=== PATIENT | male | born 1945 | race Caucasian/White ===

== ENCOUNTER → 2020-11-18 08:42 | Outpatient (CLI) | payer MEDICARE, OTHER, SELFPAY ==
[2020-11-19 02:21] LABS: SARS-CoV-2 RNA PCR Negative
== END ==
PROVIDERS: PCP Internal Medicine; Visit Provider Internal Medicine
DX: Z20.822 Contact with and (suspected) exposure to COVID-19 (principal)
CPT/HCPCS: C9803; U0003; U0005

== ENCOUNTER 2021-09-15 01:36 | Day surgery (SDC) | payer MEDICARE, OTHER, SELFPAY ==
[2021-08-28 14:59] VITALS: BMI 28.5
[2021-09-15 09:38] VITALS: BP 166/85; PULSE 64; RESP 18; TEMP 36.4; O2SAT 100
[2021-09-15] MEDS: LACTATED RINGERS 1,000 ML 150 ML IV CONT (09:48)
--- NOTE | 2021-09-15 10:05 | WPDGICN ---
Assessment and Plan Assessment and plan (1) Hx of colonic polyps: Code(s): Z86.010 - Personal history of colonic polyps Status: Acute Assessment and Plan: Patient has a prior history of colon polyps. Most recent colonoscopy 2018. Plan is for surveillance colonoscopy at intervals in the future. High-fiber diet advised. Further recommendations may be given after endoscopy. GI Consult Note Consult date/time: 09/15/21 10:05 Reason for consult: History of colon polyps. HPI: Alberto Harrington is a 75 year old male Presents for neoplasia screening colonoscopy. Patient reports that his current weight appetite and bowel movements are normal. Patient denies abdominal pain. Patient has had no bleeding. He does have a prior history of adenomatous colon polyps removed from the colon 3 years ago. He returns today for surveillance colonoscopy. Patient denies abdominal pain has had no bleeding his family history is noncontributory. Review of Systems Review of Systems: Review of systems noncontributory. [facility] Past Medical History Medical History Benign essential hypertension BMI 29.0-29.9,adult BMI 30.0-30.9,adult Chest wall discomfort Colon cancer screening Dyslipidemia Elevated homocysteine Encounter for Medicare annual wellness exam Encounter for routine adult health examination without abnormal findings Encounter for special screening examination for neoplasm of prostate Erectile dysfunction GERD (gastroesophageal reflux disease) Hx of colonic polyps Hx of colonic polyps IGT (impaired glucose tolerance) Macular degeneration On snf drug therapy Rosacea Testicular hypofunction Family History Family History Mother Family history of lung cancer Father Family history of congestive heart failure Social History Social History Smoking packs per day: 1 Smoking cigarettes per day: 20.0 Years smoked: 20 Smoking pack-years: 20.00 Smoking status: Former smoker Tobacco type: cigarettes Smoking end date: 05/18/91 Alcohol intake: current Alcohol use details: socially Substance use: never Substance use type: does not use Living arrangements: with family Spiritual care concerns: No Meds Home Medications and Allergies Home Medications Medication Instructions Recorded Confirmed Type cyanocobalamin (vitamin B-12) 1,000 mcg PO DAILY #90 tabs 04/13/19 08/30/21 Rx 1,000 mcg tablet (Vitamin B-12) sildenafil 100 mg tablet 100 mg PO DAILY PRN (Drug) 05/07/19 08/30/21 History Ingestion lactobacillus combination no.9 4 4,000 mmu cells PO DAILY 05/27/20 08/30/21 History billion cell capsule (Adult 50 Plus Probiotic) melatonin 5 mg tablet 5 mg PO HS 05/27/20 08/30/21 History psyllium seed (sugar) oral powder 2 tsp PO ONCE 05/27/20 08/30/21 History (Metamucil (sugar) oral powder) vit C 250 mg-vit E 90 mg-zinc 40 1 tablet PO BID 05/27/20 08/30/21 History mg-copper 1 wz-iqaeow-firxhp capsule (PreserVision AREDS-2) carvedilol 6.25 mg tablet 6.25 mg PO Q12H #180 tabs 10/19/20 08/30/21 Rx pantoprazole 40 mg tablet,delayed 40 mg PO QAM #90 tabs 11/28/20 08/30/21 Rx release testosterone 10 mg/0.5 4 pump transdermal QAM #270 grams 12/27/20 08/30/21 Rx gram/actuation transdermal gel pump (Fortesta) amlodipine 10 mg tablet 10 mg PO DAILY #90 tabs 03/27/21 08/30/21 Rx folic acid 1 mg tablet 1 mg PO DAILY #90 tabs 03/27/21 08/30/21 Rx telmisartan 40 1 tablet PO DAILY #90 tabs 04/10/21 08/30/21 Rx mg-hydrochlorothiazide 12.5 mg tablet adapalene 0.1 % topical gel 1 applic topical QHS 04/20/21 08/30/21 History (Differin) doxycycline hyclate 100 mg tablet 20 mg PO BID 04/20/21 08/30/21 History triamcinolone acetonide 0.1 % 1 applic topical BID #30 grams 04/20/21 08/30/21 Rx topical
--- NOTE | 2021-09-15 10:06 | WPDANESEPPF ---
Anes - Initial Pre Proc Eval Procedure: Operation Date: 09/15/21 10:30 Proposed Procedures p Screening Colonoscopy - Fernando Marino MD Date/Time: 09/15/21 10:06 Surgeon: Fernando Marino MD Pre Op Diagnosis: hx of colon polyps Patient Data Age: 75 Gender: M Height: 1.85 m Weight: 100.3 kg Last Vital Signs Temp 97.5 F L 09/15/21 09:38 Pulse 64 09/15/21 09:38 Resp 18 09/15/21 09:38 BP 166/85 H 09/15/21 09:38 Pulse Ox 100 09/15/21 09:38 O2 Del Method Room Air 09/15/21 09:38 Allergies Allergy/AdvReac Type Severity Reaction Status Date / Time No Known Allergies Allergy Verified 09/15/21 09:35 Home Medications Medication Instructions Recorded Confirmed Type cyanocobalamin (vitamin B-12) 1,000 mcg PO DAILY #90 tabs 04/13/19 08/30/21 Rx 1,000 mcg tablet (Vitamin B-12) sildenafil 100 mg tablet 100 mg PO DAILY PRN (Drug) 05/07/19 08/30/21 History Ingestion lactobacillus combination no.9 4 4,000 mmu cells PO DAILY 05/27/20 08/30/21 History billion cell capsule (Adult 50 Plus Probiotic) melatonin 5 mg tablet 5 mg PO HS 05/27/20 08/30/21 History psyllium seed (sugar) oral powder 2 tsp PO ONCE 05/27/20 08/30/21 History (Metamucil (sugar) oral powder) vit C 250 mg-vit E 90 mg-zinc 40 1 tablet PO BID 05/27/20 08/30/21 History mg-copper 1 [id number]-pislxb-witxwu capsule (PreserVision AREDS-2) carvedilol 6.25 mg tablet 6.25 mg PO Q12H #180 tabs 10/19/20 08/30/21 Rx pantoprazole 40 mg tablet,delayed 40 mg PO QAM #90 tabs 11/28/20 08/30/21 Rx release testosterone 10 mg/0.5 4 pump transdermal QAM #270 grams 12/27/20 08/30/21 Rx gram/actuation transdermal gel pump (Fortesta) amlodipine 10 mg tablet 10 mg PO DAILY #90 tabs 03/27/21 08/30/21 Rx folic acid 1 mg tablet 1 mg PO DAILY #90 tabs 03/27/21 08/30/21 Rx telmisartan 40 1 tablet PO DAILY #90 tabs 04/10/21 08/30/21 Rx mg-hydrochlorothiazide 12.5 mg tablet adapalene 0.1 % topical gel 1 applic topical QHS 04/20/21 08/30/21 History (Differin) doxycycline hyclate 100 mg tablet 20 mg PO BID 04/20/21 08/30/21 History triamcinolone acetonide 0.1 % 1 applic topical BID #30 grams 04/20/21 08/30/21 Rx topical cream cyclobenzaprine 10 mg tablet 10 mg PO TID PRN muscle spasm #30 08/24/21 08/30/21 Rx tabs Patient hx anesthesia problems: none Family hx anesthesia problems: none Results Review: All pre-operative results and documents have been reviewed as part of the pre-operative evaluation. [facility] Past Medical History Medical History Benign essential hypertension BMI 29.0-29.9,adult BMI 30.0-30.9,adult Chest wall discomfort Colon cancer screening Dyslipidemia Elevated homocysteine Encounter for Medicare annual wellness exam Encounter for routine adult health examination without abnormal findings Encounter for special screening examination for neoplasm of prostate Erectile dysfunction GERD (gastroesophageal reflux disease) Hx of colonic polyps Hx of colonic polyps IGT (impaired glucose tolerance) Macular degeneration On continuous churn buttermaker drug therapy Rosacea Testicular hypofunction Family History Family History Mother Family history of lung cancer Father Family history of congestive heart failure Social History Social History Smoking packs per day: 1 Smoking cigarettes per day: 20.0 Years smoked: 20 Smoking pack-years: 20.00 Smoking status: Former smoker Tobacco type: cigarettes Smoking end date: 05/18/91 Alcohol intake: current Alcohol use details: socially Substance use: never Substance use type: does not use Living arrangements: with family Spiritual care concerns: No Anes - Eval Final PreProcedure Day of Procedure 09/15/21 10:06 Patient weight: obese Heart: regular rate and rhythm Lungs: c
[2021-09-15 11:04] VITALS: BP 124/62; PULSE 61; RESP 20; O2SAT 100
[2021-09-15 11:11] VITALS: BP 97/79; PULSE 62; RESP 17; O2SAT 100
[2021-09-15 11:21] VITALS: BP 115/57; PULSE 53; RESP 18; O2SAT 100
== END 2021-09-15 11:28 | disposition home or self-care (01) ==
PROVIDERS: PCP Internal Medicine; Visit Provider Internal Medicine Gastroenterology
PROC: 0DJD8ZZ Inspection of Lower Intestinal Tract, Via Natural or Artificial Opening Endoscopic (ICD-10-PCS; CPT 45378; principal; 2021-09-15 10:30)
DX: Z12.11 Encounter for screening for malignant neoplasm of colon (principal); Z86.010 Personal history of colon polyps; K64.8 Other hemorrhoids; K57.30 Diverticulosis of large intestine without perforation or abscess without bleeding; E78.5 Hyperlipidemia, unspecified; K21.9 Gastro-esophageal reflux disease without esophagitis; R73.02 Impaired glucose tolerance (oral); Z87.891 Personal history of nicotine dependence
CPT/HCPCS: G0105; J2704; J7120

== ENCOUNTER 2021-11-21 15:21 | Outpatient (CLI) | payer MEDICARE, OTHER, SELFPAY ==
--- NOTE | ~2021-11-21 | US_ITS ---
EXAMINATION: US thyroid DATE: 11/21/2021 16:05 INDICATION: Abnormal thyroid function tests. TECHNIQUE: Multiple ultrasound images of the thyroid were obtained. COMPARISON: None. FINDINGS: The right thyroid lobe measures 6.6 x 2.0 x 2.2 cm. The left thyroid lobe measures 6.7 x 2.3 x 2.2 c m. In the right thyroid lobe, there is a 9 mm solid, hypoechoic, wider than tall nodule with lobulat ed margin without echogenic foci (TI-RADS TR4). In the left thyroid lobe, there is a 7 mm solid, hypo echoic, wider than tall nodule with peripheral calcifications and smooth margin (TR4). In the left th yroid lobe, there is a 9 mm mixed cystic and solid, hypoechoic, wider than tall nodule with smooth ma rgin without echogenic foci (TR3). IMPRESSION: 1. Small thyroid nodules, likely not clinically significant. No follow-up is needed. Reviewed, dictated and finalized at location A. IMPRESSION: 1. Small thyroid nodules, likely not clinically significant. No follow-up is ne eded.
== END 2021-11-21 15:22 | disposition home or self-care (01) ==
LOC: ANHIMG 15:23
PROVIDERS: PCP Internal Medicine; Visit Provider Internal Medicine
DX: E04.2 Nontoxic multinodular goiter (principal); R94.6 Abnormal results of thyroid function studies
CPT/HCPCS: 76536

== ENCOUNTER 2021-12-25 08:38 | Outpatient (CLI) | payer MEDICARE, OTHER, SELFPAY ==
--- NOTE | ~2021-12-25 | XR_ITS ---
EXAMINATION: XR chest 2V DATE: 12/25/2021 08:53 INDICATION: Cough and congestion. Shortness of breath. TECHNIQUE: Frontal and lateral views of the chest were obtained. COMPARISON: Chest 2 views 05/08/2019 FINDINGS: There is no pneumonia, pleural effusion, or pneumothorax. Staple lines overlie right lung. The heart size is normal. IMPRESSION: 1. No acute cardiopulmonary disease. Reviewed, dictated and finalized at location A.
[2021-12-25 15:53] LABS: Basophils Absolute Auto 0.1 K/mm3 (0.0-0.1); Basophils Percent Auto 0.8 % (0.2-1.2); Eosinophils Absolute Auto 0.2 K/mm3 (0-0.3); Eosinophils Percent Auto 2.1 % (0-4.4); Hematocrit 42.3 % (42.0-52.0); Hemoglobin 14.5 g/dL (14.0-18.0); Immature Granulocyte Absolute 0.02 K/mm3 (0.00-0.031); Immature Granulocyte Percent A 0.3 % (0-0.5); Lymphocytes Absolute Auto 2.45 K/mm3 (0.9-3.2); Lymphocytes Percent Auto 31.9 % (18.3-44.2); Mean Corpuscular HGB Conc 34.3 g/dl (32-36); Mean Corpuscular Hemoglobin 32.8 pg (26-34); Mean Corpuscular Volume 95.7 fl (80-100); Mean Platelet Volume 11.3 fl (7.4-10.4); Monocytes Absolute Auto 0.6 K/mm3 (0.1-0.6); Monocytes Percent Auto 8.3 % (2.6-8.5); Neutrophils Absolute Auto 4.4 K/mm3 (1.3-6.7); Neutrophils Percent Auto 56.6 % (45.5-73.1); Platelet Count Result 165 k/mm3 (150-375); Red Blood Count 4.42 M/mm3 (4.6-6.20); Red Cell Distribution Width 12.6 % (11.5-14.5); White Blood Count 7.7 K/mm3 (4.5-10.0)
[2021-12-25 16:13] LABS: Anion Gap 14 mmol/L (8-16); Blood Urea Nitrogen 17 mg/dL (9-20); Carbon Dioxide 25 mmol/L (22-30); Chloride 101 mmol/L (98-107); Estimated Glomerular Filt Rate > 60; Glucose 101 mg/dL (65-110); Potassium 3.9 mmol/L (3.4-5.0); Sodium 140 mmol/L (137-145)
[2021-12-25 16:15] LABS: D Dimer < 0.27 ug/mL (<0.48)
== END 2021-12-25 08:39 | disposition home or self-care (01) ==
PROVIDERS: PCP Internal Medicine; Visit Provider Internal Medicine
DX: R06.02 Shortness of breath (principal); R07.89 Other chest pain; R06.09 Other forms of dyspnea
CPT/HCPCS: 36415; 71046; 80048; 85025; 85380

== ENCOUNTER 2023-04-29 00:32 | Day surgery (SDC) | payer MEDICARE, OTHER, SELFPAY ==
[2023-04-26 09:13] VITALS: BMI 29.7
--- NOTE | 2023-04-26 09:30 | PC.NURSE ---
Report to the Outpatient Waiting Room, entrance under the green pavilion located off [facility], at time __1015 on date __04/29/23 . Planned Procedure Time: ___1215 . Time changes happen often and if your time is changed the preop area will call you the afternoon before. - You and your visitor will be asked to self-screen and do not enter if you have any COVID symptoms. - A mask is optional within the hospital at this time. Patients may have clear liquids (water, carbonated beverages, clear teas, apple juice) until 3 hours prior to surgery with a maximum of 20 ounces. - No food from midnight until time of surgery - Infants may have breast milk until 4 hours before surgery, infant formula 6 hours prior to surgery. - Children will be allowed to drink immediately following surgery. If applicable, please bring a bottle or sippy cup to assist with drinking. Juice, water, soda, and popsicles are readily available. For infants on formula, please bring formula the day of surgery. Pacifiers are allowed. Take the following medications with a SIP of water the morning of surgery:_AMLODIPINE, CARVEDILOL, DOXYCYCLINE_ DO NOT STOP ANY OF YOUR OTHER PRESCRIPTION MEDICATIONS PRIOR TO SURGERY ?EXCEPT THE FOLLOWING Medications to discontinue per ANESTHESIA - _VITAMINS, PROBIOTIC, PRESERVISION OF TODAY Date to take last dose____04/26/23 Please no make-up, nail sami, hairspray, perfume, deodorant, or body powder the day of surgery. No jewelry (including any body piercings) or valuables the day of surgery, leave them at home. Please take a shower or bath the night before, or the morning of, surgery with an antibacterial soap. Wear comfortable, loose fitting clothing. Children are encouraged to wear pajamas. - Jewelry must be removed prior to entering the operating room. Rings and piercings that are not removed may be cut off. - The hospital will not accept responsibility for valuables. - Please leave all valuables, including medications, at home the day of surgery. If you are going home after surgery, a licensed tilt tray driver must drive you home. - NO public transportation without another adult if you receive anesthesia. - We recommend that an adult stay with you for 24 hours following discharge. - We also recommend that you do not drive, make important decision, drink alcoholic beverages, or take any drugs that were not prescribed by your health care provider for at least 24 hours after your discharge time. For Pediatric surgeries, we recommend two adults accompany the child home. Follow any additional instructions given to you from your surgeon. If you or anyone in your household have experienced Covid symptoms in the past week, please notify your surgeon or the nurse liaison at the phone number below for possible testing. Telephone instructions given to ____PT and asked if any additional questions and then verbalized understanding. Patient advised to call surgeon office or pre surgery nurse liaison [phone] if any additional questions.
[2023-04-29] VITALS (8 sets, daily range): BP systolic 116–158; BP diastolic 59–89; PULSE 44–63; RESP 12–16; TEMP 36.2–37.2; O2SAT 99–100
[2023-04-29] MEDS: ACETAMINOPHEN 500 MG TABLET 1000 MG PO (10:46)
[2023-04-29] MEDS: LACTATED RINGERS 1,000 ML 30 ML IV CONT ×2 (11:00→14:15)
[2023-04-29] MEDS: KETOROLAC 15 MG/ML VIAL (*BKC) IV PUSH (11:09)
[2023-04-29 11:17] LABS: Anion Gap 7 mmol/L (8-16); Blood Urea Nitrogen 18 mg/dL (9-20); Calcium 9.2 mg/dL (8.4-10.2); Carbon Dioxide 28 mmol/L (22-30); Chloride 103 mmol/L (98-107); Estimated CRCL calculation 76 ml/min; Estimated Glomerular Filt Rate > 60; Glucose 93 mg/dL (65-110); Potassium 4.3 mmol/L (3.4-5.0); Sodium 138 mmol/L (137-145)
--- NOTE | 2023-04-29 12:02 | WPDANESEPPF ---
Anes - Initial Pre Proc Eval Procedure: Operation Date: 04/29/23 12:15 Proposed Procedures p Open Umbilical Hernia Repair - Juan Vincent MD Date/Time: 04/29/23 12:02 Surgeon: Juan Vincent MD Pre Op Diagnosis: reducible umbilical hernia Patient Data Age: 77 Gender: M Height: 1.85 m Weight: 102.27 kg Last Vital Signs Temp 98.9 F 04/29/23 11:05 Pulse 63 04/29/23 11:05 Resp 16 04/29/23 11:05 BP 151/77 H 04/29/23 11:05 Pulse Ox 100 04/29/23 11:05 O2 Del Method Room Air 04/29/23 11:05 Allergies Allergy/AdvReac Type Severity Reaction Status Date / Time No Known Allergies Allergy Verified 04/29/23 10:40 Home Medications Medication Instructions Recorded Confirmed Type cyanocobalamin (vitamin B-12) 1,000 mcg PO DAILY #90 tabs 04/13/19 04/26/23 Rx 1,000 mcg tablet (Vitamin B-12) lactobacillus combination no.9 4 4,000 mmu cells PO DAILY 05/27/20 04/26/23 History billion cell capsule (Adult 50 Plus Probiotic) melatonin 5 mg tablet 5 mg PO HS PRN Sleep 05/27/20 04/26/23 History vit C 250 mg-vit E 90 mg-zinc 40 1 tablet PO BID 05/27/20 04/26/23 History mg-copper 1 mj-wyoeza-pritvv capsule (PreserVision AREDS-2) doxycycline hyclate 100 mg tablet 20 mg PO BID 04/20/21 04/26/23 History telmisartan 40 1 tablet PO DAILY #90 tabs 10/10/22 04/26/23 Rx mg-hydrochlorothiazide 12.5 mg tablet pantoprazole 40 mg tablet,delayed 40 mg PO QAM #90 tabs 11/14/22 04/26/23 Rx release cholecalciferol (vitamin D3) 125 125 mcg PO DAILY 12/27/22 04/26/23 History mcg (5,000 unit) capsule amlodipine 10 mg tablet 10 mg PO DAILY #90 tabs 03/11/23 04/26/23 Rx folic acid 1 mg tablet 1 mg PO DAILY #90 tabs 03/11/23 04/26/23 Rx carvedilol 6.25 mg tablet 6.25 mg PO Q12H #180 tabs 04/16/23 04/26/23 Rx fluorouracil 1 % topical cream 1 applic topical BID 04/25/23 04/26/23 History Laboratory Tests 04/29/23 11:02 Sodium 138 mmol/L (137-145) Potassium 4.3 mmol/L (3.4-5.0) Chloride 103 mmol/L (98-107) Carbon Dioxide 28 mmol/L (22-30) Anion Gap 7 L mmol/L (8-16) BUN 18 mg/dL (9-20) Creatinine 0.80 mg/dL (0.7-1.3) Estim Creat Clear Calc 76 ml/min Estimated GFR > 60 (59 - ) Glucose 93 mg/dL (65-110) Calcium 9.2 mg/dL (8.4-10.2) Patient hx anesthesia problems: none Family hx anesthesia problems: none Results Review: All pre-operative results and documents have been reviewed as part of the pre-operative evaluation. [facility] Past Medical History Medical History Benign essential hypertension BMI 28.0-28.9,adult BMI 29.0-29.9,adult BMI 30.0-30.9,adult Borderline abnormal TFTs Chest wall discomfort Colon cancer screening Congestion of left ear Dyslipidemia Elevated glucose Elevated homocysteine Encounter for Medicare annual wellness exam Encounter for routine adult health examination without abnormal findings Encounter for special screening examination for neoplasm of prostate Erectile dysfunction GERD (gastroesophageal reflux disease) Hx of colonic polyps IGT (impaired glucose tolerance) Macular degeneration Nocturia On parts counterman drug therapy Prostate cancer screening Rosacea Strain of lumbar region Testicular hypofunction Tightness in chest Umbilical hernia Vitamin D deficiency Surgical History Surgical History History of appendectomy ~ 1960: open appendectomy S/P excision of lipoma S/P surgical removal of pilonidal cyst Status post lung surgery Family History Family History Mother Family history of lung cancer Father Family history of congestive heart failure Unknown Heart disease Cerebrovascular accident Hypertension Cancer Social History Social History Smoking pack
--- NOTE | 2023-04-29 12:16 | WPDHPUPDATE1 ---
History and Physical Update Update Date/Time: 04/29/23 12:16 History and Physical has been reviewed, including an updated exam of the patient. There are NO changes in the patient's condition. Risks, benefits, and alternatives have been discussed and questions answered. Patient agrees to proceed with procedure.
[2023-04-29] MEDS: ceFAZolin 2 GM/D5W 50 ML 2 GM/50 ML BAG IVPB (12:22)
[2023-04-29] MEDS: LIDO 1%/EPINEPHRINE 1:100,000 50 ML VIAL INFILTRATE (12:50)
--- NOTE | 2023-04-29 13:36 | P.OP_ITS ---
Procedure Note - Detailed Date of Procedure 04/29/23 Pre-op Diagnosis reducible umbilical hernia Post-op Diagnosis Same (Umbilical fascial defect= 2cm.) Procedure Performed Open umbilical hernia repair without mesh. Surgeon Juan Vincent MD Patrol Commander Torie JAMIL, Jean JAMIL Anesthesia General Indications Patient is a 77-year-old gentleman who presented with a slowly enlarging bulge in his umbilicus which was small but a little bit sore. On examination reducible umbilical hernia. Presents now for open repair of umbilical hernia without mesh reinforcement. Findings Umbilical hernia is reducible. Small defect measuring 2cm in diameter. Hernia repaired primarily with multiple interrupted 0 Ethibond sutures. Description of Procedure After informed consent was obtained patient brought to the operating room was placed supine position and general endotracheal anesthesia was administered. The abdomen is then prepped draped usual sterile fashion. A time-out was then performed correctly identifying the patient as well as procedure to be performed verifying he was given perioperative IV antibiotics. Then started by making a small curved incision along the lower portion of the umbilical fold. Dissection carried deeply down through the dermis skin with a scalpel electrocautery was used to dissect down to the small hernia sac. The hernia sac was encircled b luntly with a Lisa clamp and the the dermis of the umbilicus was disconnected from the hernia sac utilized electrocautery. The attenuated edges of the muscle for as well as the hernia sac was then debrided down to the fascial level. This was done utilized electrocautery this tissue was discarded. This left a defect measuring 2cm in diameter. I decided close the defect primarily without the use of any mesh. Multiple 0 Ethibond sutures then placed with 1.5cm bites of good fascia on either side. The defect closed easily without any tension. I irrigated the incision sterile saline solution hemostasis was good. I then injected 1% lidocaine mixed with 0.5% Marcaine with epinephrine around the incision for postoperative pain relief. I then recreated the inverted umbilicus by tacking down the umbilical skin to the deep fascial structures utilizing 3-0 Vicryl suture. Subcutaneous tissues were then closed with interrupted 2-0 Vicryl sutures. A layer of interrupted 3-0 Vicryl deep dermal sutures were then placed and then lastly a running subcuticular 4 Monocryl suture was used to approximate skin edges. The incision was then cleaned and then Dermabond was applied. An abdominal binder was placed as well. The patient tolerated the procedure well no complications. All sponges, needles, and instrument counts were correct at the end procedure. EBL was _5__cc. The patient was awakened and taken to recovery in stable and satisfactory condition. Implants None Estimated Blood Loss 5 Drains No Packing No Pathology None sent Complications No immediate complications Condition Stable Disposition PACU [facility] Billing Surgery - Charge Forward: Surgery Billing
--- NOTE | 2023-04-29 13:52 | SUR.PHASEI ---
1351: Simple mask removed.
[2023-04-29] MEDS: oxyCODONE HCL (*CRX) 5 MG TAB IR PO (14:33)
== END 2023-04-29 15:25 | disposition home or self-care (01) ==
PROVIDERS: Anesthesiology; PCP Internal Medicine; Visit Provider Surgery
PROC: (CPT 49591; principal; 2023-04-29 12:15)
DX: K42.9 Umbilical hernia without obstruction or gangrene (principal); I10 Essential (primary) hypertension; N52.9 Male erectile dysfunction, unspecified; K21.9 Gastro-esophageal reflux disease without esophagitis; H35.30 Unspecified macular degeneration; E29.1 Testicular hypofunction; E66.9 Obesity, unspecified; Z68.29 Body mass index [BMI] 29.0-29.9, adult; Z98.890 Other specified postprocedural states; Z87.891 Personal history of nicotine dependence; Z86.010 Personal history of colon polyps; Z82.49 Family history of ischemic heart disease and other diseases of the circulatory system; Z80.1 Family history of malignant neoplasm of trachea, bronchus and lung
CPT/HCPCS: 49591; 36415; 80048; A9270; J0690; J1100; J1596; J1885; J2405; J2704; J2710; J3010; J7120

== ENCOUNTER 2024-03-18 09:47 | Outpatient (CLI) | payer MEDICARE, OTHER, SELFPAY ==
--- NOTE | ~2024-03-18 | US_ITS ---
EXAMINATION: US retroperitoneal duplex ltd DATE: 03/18/2024 11:10 INDICATION: Essential primary hypertension. TECHNIQUE: Multiple grayscale, color Doppler, and pulsed Doppler images of the kidneys and renal krystal evens were obtained. COMPARISON: None. FINDINGS: The aorta peak systolic velocity is 88 cm/s. The right renal artery peak systolic velocity is 65 cm/s in the proximal segment, 163 cm/s in the mid segment, and 80 cm/s in the distal segment. The left re nal artery peak systolic velocity is 77 cm/s in the proximal segment, 75 cm/s in the mid segment, and 50 cm/s in the distal segment. IMPRESSION: 1. No Doppler evidence of renal artery stenosis. Reviewed, dictated and finalized at location A. OGIC NURSE
--- NOTE | ~2024-03-18 | US_ITS ---
EXAMINATION: US renal BI DATE: 03/18/2024 11:09 INDICATION: Hypertension. TECHNIQUE: Multiple ultrasound grayscale images of the kidneys were obtained. COMPARISON: None. FINDINGS: The right kidney measures 12.4 x 5.9 x 4.5 cm. The left kidney measures 12.9 x 6.2 x 4.3 cm. There is cortical thinning of the kidneys. The kidneys demonstrate normal parenchymal echogenicity. There is a 2.4 cm cyst in right kidney. There is no hydronephrosis. The bladder is normal. IMPRESSION: 1. Cortical thinning of the kidneys. No hydronephrosis. Reviewed, dictated and finalized at location A. COORDINATOR
== END 2024-03-18 09:48 | disposition home or self-care (01) ==
PROVIDERS: PCP Internal Medicine; Visit Provider Internal Medicine
DX: R93.422 Abnormal radiologic findings on diagnostic imaging of left kidney (principal); R93.421 Abnormal radiologic findings on diagnostic imaging of right kidney; I10 Essential (primary) hypertension
CPT/HCPCS: 76775; 93976

== ENCOUNTER 2024-10-02 00:11 | Day surgery (SDC) | payer MEDICARE, OTHER, SELFPAY ==
[2024-09-24 09:46] VITALS: BMI 28.5
--- NOTE | 2024-09-24 09:58 | PC.NURSE ---
Report to the Outpatient Waiting Room, entrance under the green pavilion located off [facility], at time ___0630am____ on date ___10/02/24____. Planned Procedure Time: ____0730am____.? Time changes happen often and if your time is changed the preop area will call you the afternoon before. - You and your visitor will be asked to self-screen and do not enter if you have any COVID symptoms. Please call surgeon if you need to reschedule. - A mask is optional within the hospital at this time. Patients may have Light Breakfast and coffee/drink that am prior to coming in . Take only the following medications with a SIP of water on the morning of surgery: All meds ok to continue as prescribed DO NOT STOP ANY OF YOUR OTHER PRESCRIPTION MEDICATIONS PRIOR TO SURGERY EXCEPT THE FOLLOWING Hold all vitamins and supplements for 3 days per anesthesiologist. Medications to discontinue per physician None Date to take last dose None Please no make-up, nail canadian, hairspray, perfume, deodorant, or body powder the day of surgery.? No jewelry (including any body piercings) or valuables the day of surgery, leave them at home.? Please take a shower or bath the night before, or the morning of, surgery with an antibacterial soap.? Wear comfortable, loose fitting clothing.? - Jewelry must be removed prior to entering the operating room.? Rings and piercings that are not removed may be cut off. - The hospital will not accept responsibility for valuables.? - Please leave all valuables, including medications, at home the day of surgery. If you are going home after surgery, a licensed local intermodal truck driver must drive you home.? - NO public transportation without another adult if you receive anesthesia. - We recommend that an adult stay with you for 24 hours following discharge. -Pt is ok to drive himself home. Follow any additional instructions given to you from your surgeon. Telephone instructions given to ___Patient and asked if any additional questions and then verbalized understanding. Patient advised to call surgeon office or pre surgery nurse liaison [phone] if any additional questions.
[2024-10-02] VITALS (7 sets, daily range): BP systolic 130–167; BP diastolic 62–78; PULSE 52–75; RESP 16–20; TEMP 36.3; O2SAT 97–100
--- OUTSIDE RECORDS SUMMARY | 2024-10-02 00:16 | XMS_ITS | Continuity of Care Document ---
Author Name [facility] Organization [facility] Care Team Providers Care Tailor Fitter Name Role Phone [facility] Unavailable Unavailable Medications Combined list of outpatient medications from Department of Defense and Veterans Affairs facilities.Medications provided include 1) outpatient medications from the last 15 months, and 2) patient-reported medications. Medication Details Route Status Patient Instructions Prescription Expires Prescription Number Last Dispense Date Ordering Provider Order Date Order Qty Source adapalene 0.3% topical gel APPLY A PEA-SIZE D AMOUNT TO FACE AT BEDTIME, # 45 g, 4 total refill(s ), Acute Complet ed 04/18/2023 3 2023 45.0 Ambulat ory Pharmac y albuterol 90 mcg/inh inhalation aerosol INHALE 2 PUFFS BY MOUTH FOUR TIMES A DAY NEEDED FOR SHORTNES S OF BREATH OR WHEEZING , # 8.5 g, 1 total refill(s ), Acute Complet ed 12/24/2022 2 2022 8.5 Ambulat ory Pharmac y amLODIPine (U/D) 10 MG ORAL TAB Be careful if taking OTCs.Vikash e or use exactly as directed . 09/05/2024 [id number] 4 2023 90 [employer] Juan WOLFF ([facility]) amLODIPine 10 mg tablet 10 mg, Oral, Daily, # 90 EA, 1 total refill(s ), Hard Stop Oral (given by mouth) Discont inued 03/06/2024 4 2023 90.0 Ambulat ory Pharmac y amLODIPine 10 mg tablet 10 mg, Oral, Daily, # 90 EA, 1 total refill(s ), Hard Stop Oral (given by mouth) Discont inued 09/10/2023 3 2023 90.0 Ambulat ory Pharmac y amLODIPine 10 mg tablet = 1 tab(s), Oral, Daily, # 90 EA, 1 total refill(s ), Hard Stop Oral (given by mouth) Discont inued 09/01/2024 5 2024 90.0 Ambulat ory Pharmac y amLODIPine 10 mg tablet = 1 tab(s), Oral, Daily, # 90 EA, 1 total refill(s ), Soft Stop Oral (given by mouth) Ordered 5 2024 90.0 Ambulat ory Pharmac y carvedilol 12.5 mg tablet See Instruct ions, Oral, # 180 EA, 1 total refill(s ), Hard Stop Oral (given by mouth) Discont inued 01/28/2024 2023 180.0 Ambulat ory Pharmac y carvedilol 25 mg tablet See Instruct ions, Oral, # 180 EA, 0 total refill(s ), Soft Stop Oral (given by mouth) Discont inued 09/21/2024 5 2024 180.0 Ambulat ory Pharmac y carvedilol 25 mg tablet See Instruct ions, Oral, # 180 EA, 1 total refill(s ), Soft Stop Oral (given by mouth) Ordered 5 2024 180.0 Ambulat ory Pharmac y carvedilol 25 mg tablet See Instruct ions, Oral, # 180 EA, 0 total refill(s ), Hard Stop Oral (given by mouth) Complet ed 04/27/2024 4 2024 180.0 Ambulat ory Pharmac y carvedilol 6.25 mg tablet See Instruct ions, Oral, # 180 EA, 1 total refill(s ), Hard Stop Oral (given by mouth) Discont inued 10/21/2023 4 2023 180.0 Ambulat ory Pharmac y carvedilol 6.25 mg tablet See Instruct ions, Oral, # 180 EA, 1 total refill(s ), Hard Stop Oral (given by mouth) Discont inued 06/17/2024 4 2024 180.0 Ambulat ory Pharmac y carvedilol 6.25 mg tablet See Instruct ions, # 180 EA, 1 total refill(s ), Hard Stop Complet ed 10/17/2023 3 2023 180.0 Ambulat ory Pharmac y clobetasol 0.05% topical solution APPLY 2 TO 3 DROPS TWICE DAILY TO RASH AREAS ON SCALP FOR 28 DAYS (DO NOT APPLY TO FACE) (MUST TAKE 2 WEEK BREAK BEFORE RESTARTI NG), # 50 mL, 1 total refill(s ), Acute Complet ed 10/11/2022 2 2022 50.0 Ambulat ory Pharmac y doxycycline 20 mg tablet See Instruct ions, # 180 EA, 3 total refill(s ), Hard Stop Complet ed 04/16/2024 4 2024 180.0 Ambulat ory Pharmac y doxycycline 20 mg tablet = 2 tab(s), Oral, Daily, # 180 EA, 3 total refill(s ), Hard Stop Oral (given by mouth) Ordered 04/16/2025 5 2024 180.0 Ambulat ory Pharmac y doxycycline 20 mg tablet See Instruct ions, # 180 EA, 2 total refill(s ), Acute Complet ed 04/25/2023 3 2023 180.0 Ambulat ory Pharmac y fluorouraci l 5% cream [40g] See Instruct ions, # 40 g, 2 total refill(s ), Hard Stop Complet ed 03/27/2024 3 2023 40.0 Ambulat ory Pharmac y FOLIC ACID (U/D) 1 MG ORAL TAB 09/05/2024 [id number] 4 2023 90 [employer] Juan WOLFF ([facility]) folic acid 1 mg tablet = 1 tab(s), Oral, Daily, # 90 EA, 1 total refill(s ), Hard Stop Oral (given by mouth) Discont inued 09/01/2024 5 2024 90.0 Ambulat ory Pharmac y folic acid 1 mg tablet 1 mg, See Instruct ions, Oral, Daily, # 90 EA, 1 total refill(s ), Hard Stop Oral (given by mouth) Discont inued 09/10/2023 3 2023 90.0 Ambulat ory Pharmac y folic acid 1 mg tablet 1 mg, Oral, Daily, # 90 EA, 1 total refill(s ), Hard Stop Oral (given by mouth) Discont inued 03/02/2024 4 2023 90.0 Ambulat ory Pharmac y folic acid 1 mg tablet = 1 tab(s), Oral, Daily, # 90 EA, 1 total refill(s ), Soft Stop Oral (given by mouth) Ordered 5 2024 90.0 Ambulat ory Pharmac y folic acid 1 mg tablet 1 mg, Oral, Daily, # 90 EA, 1 total refill(s ), Hard Stop Oral (given by mouth) Discont inued 09/10/2023 4 2023 90.0 Ambulat ory Pharmac y hydrALAZINE 25 mg tablet = 1 tab(s), Oral, TID, # 270 EA, 0 total refill(s ), Soft Stop Oral (given by mouth) Ordered 5 2024 270.0 Ambulat ory Pharmac y hydrALAZINE 50 mg tablet = 1 tab(s), Oral, TID, # 270 EA, 0 total refill(s ), Soft Stop Oral (given by mouth) Ordered 5 2024 270.0 Ambulat ory Pharmac y hydrALAZINE 50 mg tablet = 1 tab(s), Oral, TID, # 270 EA, 1 total refill(s ), Hard Stop Oral (given by mouth) Ordered 03/02/2025 5 2024 270.0 Ambulat ory Pharmac y hydroCHLORO thiazide 12.5 mg tablet = 1 tab(s), Oral, Daily, # 90 EA, 1 total refill(s ), Soft Stop Oral (given by mouth) Discont inued 09/21/2024 5 2024 90.0 Ambulat ory Pharmac y hydroCHLORO thiazide-te lmisartan 12.5 mg-40 mg tab = 1 tab(s), Oral, Daily, # 90 EA, 1 total refill(s ), Soft Stop Oral (given by mouth) Discont inued 09/21/2024 5 2024 90.0 Ambulat ory Pharmac y hydrochloro thiazide-te lmisartan 25 mg-80 mg tablet = 1 tab(s), Oral, Daily, # 90 EA, 1 total refill(s ), Soft Stop Oral (given by mouth) Ordered 5 2024 90.0 Ambulat ory Pharmac y imiquimod 5% cream [24EA] See dose instruct ions in comments , # 24 EA, 1 total refill(s ), Acute Complet ed 04/18/2023 3 2023 24.0 Ambulat ory Pharmac y LORazepam 0.5 mg tablet = 1 tab(s), Oral, TID, # 30 EA, 0 total refill(s ), Hard Stop Oral (given by mouth) Complet ed 01/27/2024 4 2023 30.0 Ambulat ory Pharmac y Micardis HCT 40 mg- 12.5 mg tablet = 1 tab(s), Oral, Daily, # 90 EA, 1 total refill(s ), Hard Stop Oral (given by mouth) Discont inued 04/30/2023 3 2023 90.0 Ambulat ory Pharmac y Micardis HCT 40 mg- 12.5 mg tablet = 1 tab(s), Oral, Daily, # 90 EA, 1 total refill(s ), Hard Stop Oral (given by mouth) Discont inued 01/31/2024 4 2023 90.0 Ambulat ory Pharmac y Micardis HCT 40 mg- 12.5 mg tablet = 1 tab(s), Oral, Daily, # 90 EA, 1 total refill(s ), Hard Stop Oral (given by mouth) Discont inued 09/21/2024 5 2024 90.0 Ambulat ory Pharmac y Micardis HCT 40 mg- 12.5 mg tablet = 1 tab(s), Oral, Daily, # 90 EA, 0 total refill(s ), Hard Stop Oral (given by mouth) Discont inued 07/26/2023 4 2023 90.0 Ambulat ory Pharmac y pantoprazol e EC 40 mg tablet See Instruct ions, # 90 EA, 1 total refill(s ), Hard Stop Discont inued 05/13/2024 4 2024 90.0 Ambulat ory Pharmac y pantoprazol e EC 40 mg tablet = 1 tab(s), Oral, every morning, # 90 EA, 1 total refill(s ), Hard Stop Oral (given by mouth) Ordered 05/13/2025 5 2024 90.0 Ambulat ory Pharmac y pantoprazol e EC 40 mg tablet 40 mg, Oral, every morning, # 90 EA, 1 total refill(s ), Hard Stop Oral (given by mouth) Complet ed 11/14/2023 3 2023 90.0 Ambulat ory Pharmac y pantoprazol e EC 40 mg tablet 40 mg, Oral, every morning, # 90 EA, 1 total refill(s ), Hard Stop Oral (given by mouth) Complet ed 05/12/2024 4 2024 90.0 Ambulat ory Pharmac y pimecrolimu s 1% topical cream APPLY TO RASH AREAS ON TRUNK TWICE A DAY FOR FLARES, THEN USE TWICE A WEEK FOR MAINTENA NCE, # 60 g, 2 total refill(s ), Acute Complet ed 10/11/2022 2 2022 60.0 Ambulat ory Pharmac y telmisartan /HCTZ (UD) 40-12.5MG ORAL TAB Be careful if taking OTCs.Vikash e with food/mil k.Avoid exposure to sun.Take or use exactly as directed .Do not take if . 07/25/2024 [id number] 4 2023 90 [employer] [facility]OL[facility] ([facility]) traZODone 100 mg tablet See Instruct ions, Oral, # 90 EA, 3 total refill(s ), Hard Stop Oral (given by mouth) Discont inued 01/28/2024 4 2023 90.0 Ambulat ory Pharmac y traZODone 150 mg tablet = 1 tab(s), Oral, Daily, # 90 EA, 1 total refill(s ), Hard Stop Oral (given by mouth) Ordered 01/26/2025 5 2024 90.0 Ambulat ory Pharmac y traZODone 50 mg tablet See Instruct ions, # 60 EA, 5 total refill(s ), Hard Stop Discont inued 08/08/2023 4 2023 60.0 Ambulat ory Pharmac y Trazodone Hcl, 100mg, Tablet, Oral Take with food/mil k.Take or use exactly as directed .Obtain advice for OTCs.May cause drowsine ss/dizzi ness. 07/28/2024 [id number] 4 [address] [place] [address] ([facility]) Trazodone Hydrochlori de (Desyrel Eq.) Tablet 50 mg Oral Take with food/mil k.Take or use exactly as directed .Obtain advice for OTCs.May cause drowsine ss/dizzi ness. 07/07/2024 [id number] 4 [address] [place] [address]) Allergies, Adverse Reactions, Alerts Combined list of allergies from Department of Defense and Veterans Affairs facilities. It does not include entries that were removed or entered in error. Substance Category Reaction Severity Reaction type Status Date Reported Comments Source No Known Allergies Drug allergy (disorder) active 02/08/[address] [place] [address] ([facility]) Immunizations Combined list of available immunizations from the Department of Defense and Veterans Affairs facilities. Immunization Series Date Given Administered By Site Reaction Lot Number CVX Code Drug Habilitative Interventionist Status Comments Source COVID-19, mRNA, LNP-S, PF, 100 mcg or 50 mcg dose 2021 REES, Moderna [employer] (MOD) Not Given COVID-19, mRNA, LNP-S, PF, 100 mcg or 50 mcg dose DoD COVID Vaccine Moderna 2020 207 complet ed COVID Vaccine Moderna 02/09/21 Given Ambulat ory Pharmac y COVID-19, mRNA, LNP-S, PF, 100 mcg or 50 mcg dose 2020 [facility], () Not Given COVID-19, mRNA, LNP-S, PF, 100 mcg or 50 mcg dose DoD influenza, high-dose seasonal, quad, pf 2020 197 sanofi pasteur complet ed influenza , high-dose seasonal, quad, pf 01/24/21 Given Ambulat ory Pharmac y influenza, high-dose, quadrivalent 2020 [facility], () Not Given influenza , high-dose , quadrival ent DoD pneumococcal polysaccharid e, 23 valent 2018 33 Merck & Company Inc complet ed pneumococ quintin polysacch aride, 23 valent 02/11/19 Given Ambulat ory Pharmac y pneumococcal polysaccharid e PPV23 2018 [facility], () Not Given pneumococ quintin polysacch aride PPV23 DoD zoster vaccine, inactivated 2018 187 GlaxoSmithKli ne complet ed zoster vaccine, inactivat ed 11/17/18 Given Ambulat ory Pharmac y zoster vaccine, inactivated 2018 187 GlaxoSmithKli ne complet ed zoster vaccine, inactivat ed 08/01/18 Given Ambulat ory Pharmac y influenza, seasonal,high dose-pf 2017 135 sanofi pasteur complet ed influenza , seasonal, high dose-pf 02/07/18 Given Ambulat ory Pharmac y Influenza, high dose seasonal 2016 [facility], () Not Given Influenza , high dose seasonal DoD influenza, seasonal, injectable-pf 2013 140 CSL Behring complet ed influenza , seasonal, injectabl e-pf 02/02/14 Given Ambulat ory Pharmac y Influenza, seasonal, injectable, preservative free 2013 AL[facility], RUSHDI DO () Not Given Influenza , seasonal, injectabl e, preservat kimberly free DoD zoster vaccine live 2011 zzLef t Arm [id number] 121 Merck & Company Inc complet ed zoster vaccine live 07/31/11 Given Ambulat ory Pharmac y zoster vaccine live 2011 [id number] 121 Merck & Company Inc complet ed zoster vaccine live 07/31/11 Given Ambulat ory Pharmac y zoster vaccine, live 1 2011 Unknown, Provider [id number] 121 Merck (MSD) complet ed zoster vaccine, live DoD influenza virus vaccine, live 2010 [id number] 111 Medimmune Inc comple t ed influenza virus vaccine, live 01/04/11 Given Ambulat ory Pharmac y influenza virus vaccine, live 2010 [id number] 111 Medimmune Inc comple t ed influenza virus vaccine, live 01/04/11 Given Ambulat ory Pharmac y influenza virus vaccine, live, attenuated, for intranasal use 1 2010 Unknown, Provider [id number] 111 [employer], [employer]. (MED) complet ed influenza virus vaccine, live, attenuate d, for intranasa l use DoD influenza virus vaccine,split [facility] [id number] 15 sanofi pasteur complet ed influenza virus vaccine,s plit 03/23/08 Given Ambulat ory Pharmac y influenza virus vaccine,split 2007 [id number] 15 sanofi pasteur complet ed influenza virus vaccine,s plit 03/23/08 Given Ambulat ory Pharmac y influenza virus vaccine, split virus (incl. purified surface antigen)-reti red CODE 1 2007 Unknown, Provider [id number] 15 Sanofi Pasteur (PMC) complet ed influenza virus vaccine, split virus (incl. purified surface antigen)- retired CODE DoD influenza virus vaccine,split [facility] [id number] 15 GlaxoSmithKli ne complet ed influenza virus vaccine,s plit 03/05/07 Given Ambulat ory Pharmac y influenza virus vaccine,split 2006 [id number] 15 GlaxoSmithKli ne complet ed influenza virus vaccine,s plit 03/05/07 Given Ambulat ory Pharmac y influenza virus vaccine, split virus (incl. purified surface antigen)-reti red CODE 1 2006 Unknown, Provider [id number] 15 Smithine (SKB) complet ed influenza virus vaccine, split virus (incl. purified surface antigen)- retired CODE DoD influenza virus vaccine,split 2004 zzL t Arm 15 sanofi pasteur complet ed influenza virus vaccine,s plit 02/28/05 Given Ambulat ory Pharmac y influenza virus vaccine, split virus (incl. purified surface antigen)-reti red CODE 1 2004 Unknown, Provider 15 Sanofi Pasteur (PMC) complet ed influenza virus vaccine, split virus (incl. purified surface antigen)- retired CODE DoD Procedures Combined list of: 1) Procedures from Department of Veterans Affairs facilities going back up to thelast 18 months, not all [place] non-surgical procedures are included; 2) All procedures from the Department of Defense facilities. Procedure Procedure Type Code Date Perfomer Comments Sourc e No data available for this section Ambulatory P harmacy Social History Combined list of available smoking, tobacco, and other social history from Department of Defense and Veterans Affairs facilities. Social History Type Response Date Comment Sourc e This section is an empty social history section. [facility] Assessment and Plan Combined list of future care activities from Department of Defense and Veterans Affairs facilities (e.g., assessment and plan notes, appointments, orders, and referrals). Additional future care activities may be listed in the Plan of Care section. Result Assessment and Plan Date Source Assessment and Plan No data available for this section 10/02/2024 Ambulatory Pharmacy Functional Status Combined list of recent functional and cognitive assessments recorded at Department of Defense and Veterans Affairs ([place]).[facility] Functional [place] Measurement (FIM) Scale: 1 = Total Assistance (Subject = 0% +), 2 = Maximal Assistance (Subject = 25% +), 3 = Moderate Assistance (Subject = 50% +), 4 = Minimal Assistance (Subject = 75% +), 5 = Supervision, 6 = Modified [place] (Device), 7 = Complete [place] (Timely, Safely). Assessment Date/Time Source Assessment Type Assessment Skill Assessment Score Assessment Details No data available for this section
--- OUTSIDE RECORDS SUMMARY | 2024-10-02 00:16 | XMS_ITS | Clinical Summary ---
Author Organization [facility] Address [address], [address] [address] Phone Care Team Providers Care Corn Grower Name Role Phone Dave Gresham MD Primary Care Provider [phone] Social History Tobacco Use Types Packs/Day Years Used Date Smoking Tobacco: Never Assessed Sex and Gender Information Value Date Recorded Sex Assigned at Not on file Legal Sex Male 8:56 PM CDT Gender Identity Not on file Sexual Orientation Not on file Plan of Treatment Health Maintenance Due Date Last Done Comments Hepatitis C Virus (HCV) Screening 1945 TdaP Immunization 1945 Pneumococcal Immunization (5 0+ years) (1 of 1 - PCV) 09/27/1995 Zoster Immunization (1 of 2) 09/27/1995 Respiratory Syncytial Virus (RSV) Immunization (Adult) (1 - 1-dose 75+ series) 2020 Influenza Immunization (#1) 2023 SARS-COV-2 Immunization ( season) 2023 Colonoscopy Discontinued 10/09/2018 Colorectal Cancer Screening Discontinued Retired - Colonoscopy High Risk Discontinued 9 Cologuard Discontinued Hepatitis B Immunization Aged Out No longer eligible based on patient's age to complete this topic Immunochemical Fecal Occult Blood Discontinued Meningococcal Immunization (ACWY) Aged Out No longer eligible based on patient's age to complete this topic Rotavirus Immunization Aged Out No lo nger eligible based on patient's age to complete this topic Procedures Procedure Name Priority Date/Time Associated Diagnosis Comments COLONOSCOPY Routine 10/09/2018 from Last 3 Months or Most Recently Relevant to Health Maintenance Results * HM COLONOSCOPY (10/09/2018) us Fernando T Michaela DO PROCEDURE/MINOR SURGICAL ORDERA BLES Final Result from Last 3 Months or Most Recently Relevant to Health Maintenance Insurance MEDICARE [facility] Care Teams Corn Grower Relationship Specialty Start Date End Date Dave Gresham MD PCP - General Internal Medicine 08/21/18
[2024-10-02] MEDS: BUPivacaine HCL 0.5% PF 30 ML VIAL INFILTRATE ×2 (07:11→07:41)
--- NOTE | 2024-10-02 07:18 | WPDHPUPDATE1 ---
History and Physical Update Update Date/Time: 10/02/24 07:18 History and Physical has been reviewed, including an updated exam of the patient. There are NO changes in the patient's condition. Risks, benefits, and alternatives have been discussed and questions answered. Patient agrees to proceed with procedure.
--- NOTE | 2024-10-02 07:59 | S_PTH ---
PATIENT: Alberto Harrington LOC: [facility] U#:[id number] AGE/SX: 79/M ROOM: RE10/02/[address]: Juan Vincent MD : 1945 BED: DIS: 10/02/2024 SPEC #: [id number] RECD: 10/02/24 09:51 STATUS: JAREN REQ #: [id number] NELL: 10/02/24 07:[address]: Juan Vincent DEPT: [facility] Surgical RECD BY: Yelitza Patel ENTERED: 10/02/24 09:51 SP TYPE: Surgical OTHR DR: Dave Gresham MD Tissues: A - Cyst Procedures: Hematoxylin and Eosin Stain Gross and Microscopic Level 4
--- NOTE | 2024-10-02 08:12 | SUR.OPER ---
specimen 2 x .8 x 1, 3 cm closure
--- NOTE | 2024-10-02 08:25 | P.OP_ITS ---
Procedure Note - Detailed Date of Procedure 10/02/24 Pre-op Diagnosis Left perineal inclusion cyst Post-op Diagnosis Same Procedure Performed Excision left perineal inclusion cyst with 3cm intermediate layered wound closure. Surgeon Juan Vincent MD Anesthesia Local Indications Patient is a 79-year-old male who has been having intermittent infections and spontaneous drainage of a left perineal inclusion cyst. It is currently not infected and he would like to have it excised due to recurrent infections. Findings The ellipse of tissue encompassing the cyst was 2x0.8x1cm. It required a 3cm intermediate layered wound closure. Description of Procedure After informed consent was obtained patient brought to the operating room was placed supine on the operating table. He was then placed and hike Yellofin stir rups to expose the left perineal area. The scrotum was retracted upwards and then the left perineal area was and shaved and prepped and draped usual sterile fashion. Time-out was then performed correctly identifying the patient as well as procedure to be performed. Site marking was identified. No IV antibiotics was given as he did not have an IV started. 1% lidocaine mixed with 0.5% Marcaine with some epinephrine was then injected around the cyst for local anesthetic effect. Once this was achieved I then made a elliptical incision around the cyst wall and carried deeply down the dermis of the skin with a scalpel. I then completely excised off the ellipse of tissue containing the cyst wall utilized electrocautery. The ellipse of tissue removed measured 2x0.8x1cm. It was sent to pathology for examination. I achieved hemostasis in the incision utilized electrocautery. It was then closed utilizing interrupted 3-0 Vicryl sutures in the subcutaneous tissues. This was followed by another layer of interrupted 3-0 Vicryl sutures in the deep dermal layer. The skin edges were then approximated utilizing a running subcuticular 4 Monocryl suture. The incision was then cleaned and then skin glue was applied. The length of the intermediate layered wound closure was 3cm. The patient tolerated the procedure well no complications. All sponges, needles, and instrument counts were correct at the end procedure. EBL was _2__cc. The patient was awakened and taken to recovery in stable and satisfactory condition. Implants None Estimated Blood Loss 2 Drains No Packing No Pathology Yes (Left perineal inclusion cyst sent to pathology) Complications No immediate complications Condition Stable Disposition Same day [facility] Billing Surgery - Charge Forward: Surgery Billing
== END 2024-10-02 08:30 | disposition home or self-care (01) ==
PROVIDERS: PCP Internal Medicine; Visit Provider Surgery
PROC: (CPT 11422; principal; 2024-10-02 07:30)
DX: L72.0 Epidermal cyst (principal); E55.9 Vitamin D deficiency, unspecified; K21.9 Gastro-esophageal reflux disease without esophagitis; I10 Essential (primary) hypertension; F41.9 Anxiety disorder, unspecified; G47.00 Insomnia, unspecified; H35.30 Unspecified macular degeneration; E29.1 Testicular hypofunction; N52.9 Male erectile dysfunction, unspecified; R73.09 Other abnormal glucose; Z79.899 Other long term (current) drug therapy; Z98.890 Other specified postprocedural states; Z86.0100 Personal history of colon polyps, unspecified; Z87.891 Personal history of nicotine dependence; Z87.19 Personal history of other diseases of the digestive system; Z80.1 Family history of malignant neoplasm of trachea, bronchus and lung; Z82.49 Family history of ischemic heart disease and other diseases of the circulatory system
CPT/HCPCS: 11422; 12042; 88305; A9270; J2004

== ENCOUNTER 2024-12-11 01:19 | Day surgery (SDC) | payer MEDICARE, OTHER, SELFPAY ==
[2024-11-26 09:04] VITALS: BMI 28.0
[2024-12-11 08:21] VITALS: BP 117/54; PULSE 61; RESP 16; TEMP 36.1; O2SAT 100; BMI 28.5
[2024-12-11] MEDS: LACTATED RINGERS 1,000 ML 150 ML IV CONT (08:30)
--- NOTE | 2024-12-11 08:47 | WPDANESEPPF ---
Anes - Initial Pre Proc Eval Procedure: Operation Date: 12/11/24 09:30 Proposed Procedures p Screening Colonoscopy - Jaime Funes MD s [facility] Hemorrhoid Treatment - Jaime Funes MD Date/Time: 12/11/24 08:47 Surgeon: Jaime Funes MD Pre Op Diagnosis: Personal history of colon polyps, unspecified Patient Data Age: 79 Gender: M Height: 1.85 m Weight: 98.3 kg Last Vital Signs Temp 36.1 C L 12/11/24 08:21 Pulse 61 12/11/24 08:21 Resp 16 12/11/24 08:21 BP 117/54 L 12/11/24 08:21 Pulse Ox 100 12/11/24 08:21 O2 Del Method Room Air 12/11/24 08:21 Allergies Allergy/AdvReac Type Severity Reaction Status Date / Time No Known Allergies Allergy Verified 12/11/24 08:20 Home Medications ?Medication ?Instructions ?Recorded ?Confirmed ?Type cyanocobalamin (vitamin B-12) 1,000 mcg PO DAILY #90 tabs 04/13/19 11/26/24 Rx 1,000 mcg tablet (Vitamin B-12) lactobacillus combination no.9 4 4,000 mmu cells PO DAILY 05/27/20 12/11/24 History billion cell capsule (Adult 50 Plus Probiotic) vit C 250 mg-vit E 90 mg-zinc 40 1 tablet PO BID 05/27/20 12/11/24 History mg-copper 1 [id number]-arxfro capsule (PreserVision AREDS-2) cholecalciferol (vitamin D3) 125 125 mcg PO DAILY 12/27/22 11/26/24 History mcg (5,000 unit) capsule Held on 11/26/24. Instructions: dose change folic acid 1 mg tablet 1 mg PO DAILY #90 tabs 09/01/24 12/11/24 Rx doxycycline hyclate 20 mg tablet 20 mg PO Q12H 09/08/24 12/11/24 History telmisartan 80 1 tablet PO DAILY #90 tabs 09/08/24 12/11/24 Rx mg-hydrochlorothiazide 25 mg tablet carvedilol 25 mg tablet 25 mg PO Q12H #180 tabs 09/09/24 12/11/24 Rx trazodone 150 mg tablet 150 mg PO QHS #90 tabs 10/08/24 12/11/24 Rx hydralazine 25 mg tablet 25 mg PO TID #270 tabs 11/04/24 12/11/24 Rx hydralazine 50 mg tablet See Rx Instructions PO TID #270 11/04/24 12/11/24 Rx tabs pantoprazole 40 mg tablet,delayed 40 mg PO QAM #90 tabs 11/04/24 12/11/24 Rx release amlodipine 10 mg tablet 5 mg PO BIDAC 11/26/24 12/11/24 History cholecalciferol (vitamin D3) 25 25 mcg PO DAILY 11/26/24 12/11/24 History mcg (1,000 unit) capsule (Vitamin D3) melatonin 10 mg capsule 10 mg PO HS PRN sleep 11/26/24 11/26/24 History psyllium 2 tsp PO DAILY 11/26/24 12/11/24 History super beet chews 1 gummy PO BID 11/26/24 11/26/24 History vitamin B complex (B-Complex 1 tablet PO DAILY 11/26/24 12/11/24 History tablet) Patient hx anesthesia problems: none Family hx anesthesia problems: none Results Review: All pre-operative results and documents have been reviewed as part of the pre-operative evaluation. [facility] Past Medical History Medical History (Updated 12/11/24 @ 07:17 by Giorgio Weathers, ) Hypertension Follow up Anxiety Insomnia Nocturia Umbilical hernia Vitamin D deficiency Tightness in chest Strain of lumbar region Elevated glucose Congestion of left ear BMI 28.0-28.9,adult Borderline abnormal TFTs Prostate cancer screening Colon cancer screening Dyslipidemia Rosacea BMI 30.0-30.9,adult Encounter for routine adult health examination without abnormal findings Macular degeneration Testicular hypofunction Encounter for special screening examination for neoplasm of prostate Chest wall discomfort Erectile dysfunction Hx of colonic polyps IGT (impaired glucose tolerance) Elevated homocysteine Encounter for Medicare annual wellness exam On epic willow specialist drug therapy GERD (gastroesophageal reflux disease) Benign essential hypertension BMI 29.0-29.9,adult Surgical History Surgical History (Updated 10/14/24 @ 13:49 by Chrissy Bauer, RUPERTO) H/O removal of cyst 10/02/24 excisional biopsy right posterior shoulder subcutaneous mass measuring 10.[address] Vincent S/P surgical removal of pilonidal cyst S/P excision of lipoma Status post lung surgery History of appendectomy ~ 1960: open appendectomy Family History Family History Mother Family history of lung cancer Father Family history of congestive heart failure Unknown Heart disease Cerebrovascular accident Hypertension Cancer Social History Social History Smoking packs per day: 1 Smoking cigarettes per day: 20.0 Years smoked: 20 Smoking pack-years: 20.00 Smoking status: Former smoker Tobacco type: cigarettes Second hand tobacco smoke exposure: No Smoking end date: 05/18/91 Alcohol intake: current Drinks per week: 5 Alcohol use details: BEER Substance use: never Substance use type: does not use Lack of Transportation: No Lack of Food: Never True Current Housing: I Have Housing Concerned About Future Housing: No Difficulty Paying Gas/Electric Bills: No Difficulty Paying for Meds: No Currently Unemployed: No Education: Master's Degree or Higher Difficulty w/ Childcare or Family Care: No Living arrangements: with family Additional living arrangements comments: Occupation/Education: retired Gender identity (if verbalized by the patient): Male Spiritual care concerns: No Anes - Eval Final PreProcedure Day of Procedure 12/11/24 08:47 Patient weight: overweight Heart: regular rate and rhythm Lungs: clear to auscultation Airway: Mallampati scale class II Neurological: alert and oriented Last oral intake: >/= 8 hours ASA classification: II Emergent: no Anesthetic plan: proceed Anesthesia type and monitoring: general GIVS and standard monitoring Results Review: All pre-operative results and documents have been reviewed as part of the pre-operative evaluation. Informed Consent: The patient's anesthetic plan and its attendant risks and benefits were discussed with the patient/family/POA. Questions were solicited and answers provided to the satisfaction of the patient/family/POA.
--- NOTE | 2024-12-11 08:58 | PM.HPGS ---
History of Present Illness History of Present Illness Consent: Risks, benefits, and alternatives have been discussed and questions answered. Patient agrees to proceed with procedure. Chief complaint: Personal history of colon polyps, unspecified Narrative: Alberto Harrington is a 79 year old male with colon polyp, last colonoscopy 2021, also recently with hemorrhoids Review of Systems Review of Systems: All systems reviewed & are unremarkable except as noted in HPI and below PMFSH Past Medical History Medical History (Updated 12/11/24 @ 08:59 by Jaime Funes MD) Hemorrhoid Hypertension Follow up Anxiety Insomnia Nocturia Umbilical hernia Vitamin D deficiency Tightness in chest Strain of lumbar region Elevated glucose Congestion of left ear BMI 28.0-28.9,adult Borderline abnormal TFTs Prostate cancer screening Colon cancer screening Dyslipidemia Rosacea BMI 30.0-30.9,adult Encounter for routine adult health examination without abnormal findings Macular degeneration Testicular hypofunction Encounter for special screening examination for neoplasm of prostate Chest wall discomfort Erectile dysfunction Hx of colonic polyps IGT (impaired glucose tolerance) Elevated homocysteine Encounter for Medicare annual wellness exam On watermaster drug therapy GERD (gastroesophageal reflux disease) Benign essential hypertension BMI 29.0-29.9,adult Surgical History Surgical History (Updated 10/14/24 @ 13:49 by Chrissy Bauer, RUPERTO) H/O removal of cyst 10/02/24 excisional biopsy right posterior shoulder subcutaneous mass measuring 10.[address] Vincent S/P surgical removal of pilonidal cyst S/P excision of lipoma Status post lung surgery History of appendectomy ~ 1960: open appendectomy Family History Family History Mother Family history of lung cancer Father Family history of congestive heart failure Unknown Heart disease Cerebrovascular accident Hypertension Cancer Social History Social History Smoking packs per day: 1 Smoking cigarettes per day: 20.0 Years smoked: 20 Smoking pack-years: 20.00 Smoking status: Former smoker Tobacco type: cigarettes Second hand tobacco smoke exposure: No Smoking end date: 05/18/91 Alcohol intake: current Drinks per week: 5 Alcohol use details: BEER Substance use: never Substance use type: does not use Lack of Transportation: No Lack of Food: Never True Current Housing: I Have Housing Concerned About Future Housing: No Difficulty Paying Gas/Electric Bills: No Difficulty Paying for Meds: No Currently Unemployed: No Education: Master's Degree or Higher Difficulty w/ Childcare or Family Care: No Living arrangements: with family Additional living arrangements comments: Occupation/Education: retired Gender identity (if verbalized by the patient): Male Spiritual care concerns: No Meds Home Medications and Allergies Home Medications ?Medication ?Instructions ?Recorded ?Confirmed ?Type cyanocobalamin (vitamin B-12) 1,000 mcg PO DAILY #90 tabs 04/13/19 11/26/24 Rx 1,000 mcg tablet (Vitamin B-12) lactobacillus combination no.9 4 4,000 mmu cells PO DAILY 05/27/20 12/11/24 History billion cell capsule (Adult 50 Plus Probiotic) vit C 250 mg-vit E 90 mg-zinc 40 1 tablet PO BID 05/27/20 12/11/24 History mg-copper 1 eu-znpfur-esmyrq capsule (PreserVision AREDS-2) cholecalciferol (vitamin D3) 125 125 mcg PO DAILY 12/27/22 11/26/24 History mcg (5,000 unit) capsule Held on 11/26/24. Instructions: dose change folic acid 1 mg tablet 1 mg PO DAILY #90 tabs 09/01/24 12/11/24 Rx doxycycline hyclate 20 mg tablet 20 mg PO Q12H 09/08/24 12/11/24 History telmisartan 80 1 tablet PO DAILY #90 tabs 09/08/24 12/11/24 Rx mg-hydrochlorothiazide 25 mg tablet carvedilol 25 mg tablet 25 mg PO Q12H #180 tabs 09/09/24 12/11/24 Rx trazodone 150 mg tablet 150 mg PO QHS #90 tabs 10/08/24 12/11/24 Rx hydralazine 25 mg tablet 25 mg PO TID #270 tabs 11/04/24 12/11/24 Rx hydralazine 50 mg tablet See Rx Instructions PO TID #270 11/04/24 12/11/24 Rx tabs pantoprazole 40 mg tablet,delayed 40 mg PO QAM #90 tabs 11/04/24 12/11/24 Rx release amlodipine 10 mg tablet 5 mg PO BIDAC 11/26/24 12/11/24 History cholecalciferol (vitamin D3) 25 25 mcg PO DAILY 11/26/24 12/11/24 History mcg (1,000 unit) capsule (Vitamin D3) melatonin 10 mg capsule 10 mg PO HS PRN sleep 11/26/24 11/26/24 History psyllium 2 tsp PO DAILY 11/26/24 12/11/24 History super beet chews 1 gummy PO BID 11/26/24 11/26/24 History vitamin B complex (B-Complex 1 tablet PO DAILY 11/26/24 12/11/24 History tablet) Allergies Allergy/AdvReac Type Severity Reaction Status Date / Time No Known Allergies Allergy Verified 12/11/24 08:20 Vital Signs Vital Signs - 24 hr 12/11/24 08:21 Temperature 97.0 F L Pulse Rate 61 Respiratory Rate 16 Blood Pressure 117/54 L Pulse Oximetry 100 Oxygen Delivery Room Air Exam Const: General: comfortable and no acute distress HENMT: Face/Nose/Sinus: Normal nares present Eyes: General: appearance normal, both eyes and all related structures Neck: Neck: no JVD Resp: Auscultation: clear to auscultation bilaterally Cardio: Rate: regular rate Rhythm: regular rhythm GI: Inspection: non-distended GI Palp: Yes Soft to palpation Skin: General skin exam: normal color Neuro: Speech: normal speech Extrem: General: normal to inspection Psych: Mental Status: mental status grossly normal Assessment and Plan Assessment and plan (1) Hx of colonic polyps: Code(s): Z86.010 - Personal history of colon polyps Status: Acute Assessment and Plan: colonoscopy (2) Hemorrhoid: Code(s): K64.9 - Unspecified hemorrhoids Status: Acute Assessment and Plan: will assess if also needs IRC treatment
[2024-12-11 09:12] VITALS: BP 121/61; PULSE 59; RESP 18; O2SAT 98
--- NOTE | 2024-12-11 09:12 | S_PTH ---
PATIENT: Alberto Harrington LOC: [facility]#:[id number] AGE/SX: 79/M ROOM: RE12/11/[address]: Jaime Funes MD : 1945 BED: DIS: 12/11/2024 SPEC #: [id number] RECD: 12/11/24 10:29 STATUS: JAREN REQ #: [id number] NELL: 12/11/24 09:[address]: Jaime Funes DEPT: [facility] Surgical RECD BY: Yelitza Patel ENTERED: 12/11/24 10:29 SP TYPE: Surgical OTHR DR: Dave Gresham MD Tissues: A - Colon Polypectomy Procedures: Hematoxylin and Eosin Stain Gross and Microscopic Level 4
--- NOTE | 2024-12-11 09:12 | W.PM.PROC2 ---
Procedure Note - Detailed Date of Procedure 12/11/24 Pre-op Diagnosis hemorrhoids Post-op Diagnosis Same Procedure Performed irc of internal hemorrhoids Surgeon Jaime Funes MD Anesthesia MAC (also had colonoscopy) Findings small size internal hemorrhoids Description of Procedure used anoscopy, noted small size internal hemorrhoids, no bleeding, no fissure. Then introduced IRC probe and hemorrhoid treated for 1.5 seconds x7
[2024-12-11 09:22] VITALS: BP 95/59; PULSE 52; RESP 20; O2SAT 98
[2024-12-11 09:32] VITALS: BP 118/63; PULSE 47; RESP 14; O2SAT 98
== END 2024-12-11 09:45 | disposition home or self-care (01) ==
PROVIDERS: PCP Internal Medicine; Referring Provider Internal Medicine; Visit Provider Internal Medicine Gastroenterology
PROC: 0DJD8ZZ Inspection of Lower Intestinal Tract, Via Natural or Artificial Opening Endoscopic (ICD-10-PCS; CPT 45378; principal; 2024-12-11 09:30)
PROC: (CPT 46930; 2024-12-11 09:30)
DX: Z12.11 Encounter for screening for malignant neoplasm of colon (principal); D12.2 Benign neoplasm of ascending colon; K64.8 Other hemorrhoids; K57.30 Diverticulosis of large intestine without perforation or abscess without bleeding; I10 Essential (primary) hypertension; F41.9 Anxiety disorder, unspecified; G47.00 Insomnia, unspecified; E55.9 Vitamin D deficiency, unspecified; E29.1 Testicular hypofunction; N52.9 Male erectile dysfunction, unspecified; K21.9 Gastro-esophageal reflux disease without esophagitis; H35.30 Unspecified macular degeneration; Z79.899 Other long term (current) drug therapy; Z98.890 Other specified postprocedural states; Z87.891 Personal history of nicotine dependence; Z80.1 Family history of malignant neoplasm of trachea, bronchus and lung; Z82.49 Family history of ischemic heart disease and other diseases of the circulatory system
CPT/HCPCS: 45380; 46930; 88305; J2704; J7120

== ENCOUNTER 2024-12-31 11:17 | Outpatient (CLI) | payer MEDICARE, OTHER, SELFPAY ==
--- NOTE | ~2024-12-31 | CT_ITS ---
EXAMINATION: CT pelvis w con DATE: 12/31/2024 11:45 INDICATION: Other specified diseases of anus and rectum. TECHNIQUE: Computed tomography (CT) of the pelvis was performed with 100 mL Omnipaque 350 intravenous contrast. Automated exposure control and iterative reconstruction technique were employed. The dose-length product was 705.70 mGy-cm. COMPARISON: None FINDINGS: There are cysts in the kidneys measuring up to 2.5 cm on the left. The prostate is mildly enlarged. There is a left inguinal hernia containing fat. There is diffuse bladder wall thickening, likely secondary to chronic outlet obstruction. There is diverticulosis of the colon without evidence of diverticulitis. The anorectal region is unremarkable. There are no pathologically enlarged lymph nodes. There is no free intraperitoneal fluid. There is severe lower lumbar spondylosis. IMPRESSION: 1. Unremarkable anorectal region. Reviewed, dictated and finalized at location E.
[2024-12-31 11:41] LABS: Estimated Glomerular Filt Rate > 60
--- OUTSIDE RECORDS SUMMARY | 2024-12-31 11:49 | XMS_ITS | Clinical Summary ---
Author Organization [facility] Address [address], [address] [address] Phone Care Team Providers Care Security Director Name Role Phone Dave Gresham MD Primary Care Provider [phone] Social History Tobacco Use Types Packs/Day Years [...] (Adult) (1 - 1-dose 75+ series) 2020 SARS-COV-2 Immunization ( - 2023-25 season) 2023 Influenza Immunization (#1) 2024 Colonoscopy Discontinued 10/09/2018 Colorectal Cancer Screening Discontinued Cologuard Discontinued Hepatitis B Immunization Aged Out No longer eligible based on patient's age to complete this topic Human Papillomavirus (HPV) Immunization Aged Out No longer eligible b ased on patient's age to complete this topic [...] Recently Relevant to Health Maintenance Results * COLONOSCOPY (10/09/2018) Fernando Jennings DO PROCEDURE/MINOR SURGICAL ORDERA BLES Final Result from Last 3 Months or Most Recently Relevant to Health Maintenance Insurance MEDICARE [facility] Care Teams Security Director Relationship Specialty Start Date End Date Dave Gresham MD PCP - General Internal Medicine 08/21/18
--- OUTSIDE RECORDS SUMMARY | 2024-12-31 11:49 | XMS_ITS | Clinical Summary ---
Author Organization [facility] Address [address] [place] [address] Care Team Providers Care Lead Front Desk Agent Name Role Phone Dave Gresham MD Primary Care Provider [phone] Isabella Valera MD Unavailable [phone] Asher Cuevas MD Unavailable [phone] Angelina Hopson OD Unavailable [phone] Allergies No known active allergies Medications telmisartan-hyd rochlorothiazid (MICARDIS HCT) 40-12.5 mg per tablet [address] (PROTONIX) 40 mg EC tablet 3 Active folic acid (FOLVITE) 1 mg tablet 3 Active ergocalciferol (VITAMIN D) 50,000 unit capsule 3 Active doxycycline (PERIOSTAT) 20 mg tablet 3 Active carvediloL (COREG) 6.25 mg tablet 3 Active amLODIPine (NORVASC) 10 mg tablet 3 Active lactobacillus comb no.10 20 billion cell capsule Take 1 tablet/capsule by mouth daily Active cyanocobalamin (Vitamin B-12) 1,000 mcg tabletIndicatio ns:Prevention of Vitamin B12 Deficiency Take 1 tablet (1,000 mcg total) by mouth daily Active vit W-L-swvnoa-zinc -lutein 226-90-0.8-5 mg capsule Take 2 capsules by mouth daily Active adapalene (DIFFERIN) 0.3 % gel Apply 1 Application topically daily Active pimecrolimus (ELIDEL) 1 % cream Apply 1 Application topically as needed Active multivitamin with minerals tablet Take 1 tablet by mouth daily Active melatonin 10 mg tablet Take 1 tablet (10 mg total) by mouth daily Active saw palmetto 450 mg capsule Take 2 tablet/capsule by mouth daily Active erythromycin (ILOTYCIN) ophthalmic ointment Apply ointment to left eyelid incisions 3 times a day. Only place ointment inside the eye for irritation. 3.5 g 3 3 Active erythromycin (ILOTYCIN) ophthalmic ointment Apply ointment to left eyelid incisions 3 times a day. Only place ointment inside the eye for irritation. 3.5 g 3 3 Active Active Problems No known active problems Surgical History Surgery Date Site/Laterality Comments CATARACT EXTRACTION 04/15/2020 - 04/14/2021 Bilateral APPENDECTOMY 04/15/1956 - 04/14/1957 LUNG SURGERY 04/15/1983 - 04/14/1984 Right MOHS SURGERY rt forehead, nape of head X2, left ear and right wrist ([id number] and 2021) Medical History Medical History Date Comments Hypertension Skin cancer Family History Medical History Relation Name Comments Cataracts Father Heart failure Father Hypertension Father Cancer Mother Cataracts Mother Lung cancer Mother Heart failure Other Strabismus Sister Diabetes Neg Hx Glaucoma Neg Hx Macular degeneration Neg Hx Thyroid disease Neg Hx Relation Name Status Comments Father Mother Other Sister Social History Tobacco Use Types Packs/Day Years Used Date Smoking Tobacco: Former Cigarettes Smokeless Tobacco: Never Tobacco Cessation:Counseling Given: No Personal Safety Answer Date Recorded Getting School Help Needed Not on file 06/29 Sex and Gender Information Value Date Recorded Sex Assigned at Not on file 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 Gender Identity Not on file Sexual Orientation Not on file Obstetrics History Plan of Treatment Health Maintenance Due Date Last Done Comments Depression Screening 1945 Fall Risk Assessment 1945 Hepatitis C Screening 1945 DTaP/Tdap/Td Vaccine (1 - Tdap) 1956 Hepatitis B Screening 09/27/1963 Well Visit 65+ 2010 Covid-19 Vaccine (6 - 2024-2 6 season) 2024 02/12/2022, 10/10/2021, 02/09/2021, Additional history exists Influenza Vaccine (#1) 2024 2, 01/24/2021, 01/18/2020, Additional history exists Zoster Vaccine Completed 11/17/2018, 07/14, 03/04/2012 Pneumococcal vaccine 65+ Completed 019, 02/07/2018, 03/07/2012, Additional history exists Insurance MEDICARE [facility] Address: [facility] [address] [place] [address] FOR LIFE Care Teams Lead Front Desk Agent Relationship Specialty Start Date End Date Dave Gresham MD PCP - General Internal Medicine 08/08/22 Isabella Valera MD [address] [place] [id number] Dermatology 08/08/22 Asher Cuevas MD [address] [place] [id number] Dermatology 08/08/22 Angelina Hopson, OD [address] [place] [id number] Optometry 08/08/22
== END 2024-12-31 11:18 | disposition home or self-care (01) ==
PROVIDERS: PCP Internal Medicine; Visit Provider Nurse Practitioner Family
DX: K62.89 Other specified diseases of anus and rectum (principal)
CPT/HCPCS: 72193; Q9967

== ENCOUNTER 2025-02-01 13:11 | Outpatient (CLI) | payer MEDICARE, OTHER, SELFPAY ==
--- NOTE | ~2025-02-01 | US_ITS ---
US thyroid INDICATION: Abnormal thyroid function tests TECHNIQUE: Real-time sonographic images of the thyroid gland were obtained. COMPARISON: Ultrasound dated 11/21/2021 FINDINGS: The right thyroid lobe measures 5.8 x 1.6 x 2.7 cm. The left thyroid lobe measures 6.3 x 2 x 2.6 cm. Thyroid echotexture is diffusely heterogeneous with multiple small masses. Largest dominant mass in the right thyroid lobe is mixed hypoechoic and hyperechoic measuring 10 x 8 x 7 mm and is wider than tall, solid, smoothly marginated without echogenic foci, TR 4. In the left lobe there is a calcified 6 mm mass unchanged from prior study, likely benign. IMPRESSION: 1. Stable small bilateral thyroid nodules, likely not clinically significant. No follow-up required. Reviewed, dictated and finalized at location O.
--- OUTSIDE RECORDS SUMMARY | 2025-02-01 14:57 | XMS_ITS | Clinical Summary ---
Author Organization [facility] Address [address], [address] [address] Phone Care Team Providers Care Workers Compensation Legal Secretary Name Role Phone Dave Gresham MD Primary Care Provider [phone] Social History Tobacco Use Types Packs/Day Years [...] 1-dose 75+ series) 2020 Influenza Immunization (#1) 2024 SARS-COV-2 Immunization ( season) 2024 Colonoscopy Discontinued 10/09/2018 Colorectal Cancer Screening [...] Recently Relevant to Health Maintenance Insurance MEDICARE [facility] Care Teams Workers Compensation Legal Secretary Relationship Specialty Start Date End Date Dave Gresham MD PCP - General Internal Medicine 08/21/18
--- OUTSIDE RECORDS SUMMARY | 2025-02-01 14:57 | XMS_ITS | Clinical Summary ---
Author Organization [facility] Address [address] [place] [address] Care Team Providers Care Automatic Thread Winder Name Role Phone Dave Gresham MD Primary Care Provider [phone] Isabella Valera MD Unavailable [phone] Asher Cuevas MD Unavailable [phone] Angelina Hopson OD Unavailable [phone] Allergies No known active allergies Medications telmisartan-hyd [...] mcg total) by mouth daily Active vit H-O-szutfk-zinc -lutein 226-90-0.8-5 mg capsule Take 2 capsules [...] head X2, left ear and right wrist ([id number] and 2021) Medical History Medical History Date [...] on file 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
--- OUTSIDE RECORDS SUMMARY | 2025-02-01 14:57 | XMS_ITS | Clinical Summary ---
Author Organization [facility] Address [address] [place] [id number] Care Team Providers Care Recyclable Materials Sorter Name Role Phone Dave Serna MD Primary Care Provider [phone] Encounters Date Type Department Care Team Description 01/25/2025 10:29 AM CDT - 01/25/2025 11:59 PM CDT Hospital Encounter [facility] [address] [place] [address] Dave Serna MD Discharge Disposition: Home or Self Care (Routine Discharge) 01/25/2025 Travel from Last 3 Months Social History Tobacco Use Types Packs/Day Years Used Date Smoking Tobacco: Never Assessed Sex and Gender Information Value Date Recorded Sex Assigned at Not on file Legal Sex Male 5:42 PM CDT Gender Identity Not on file Sexual Orientation Not on file Plan of Treatment Health Maintenance Due Date Last Done Comments Hepatitis C 09/27/1963 DTaP, Tdap and Td Vaccines (1 - Tdap) 1964 Annual Medicare Wellness Visit 2010 COVID-19 Vaccine ( season) 2024 01/18/2024, 01/16/2023, 02/12/2022, Additional history exists Influenza Adult (#1) 2025 01/18/2024, 01/24/2021, 01/18/2020, Additional history exists Zoster Vaccines Completed 11/17/2018, 07/14, 03/04/2012, Additional history exists Pneumococcal Vaccine: 50+ Years Completed 02/11/2019, 02/07/2018, 03/07/2012 RSV Immunization or 60+ Years Completed 01/16/2023 Hepatitis A Vaccines Aged Out No long er eligible based on patient's age to complete this topic Meningococcal B Vaccine Aged Out No l onger eligible based on patient's age to complete this topic Meningococcal Vaccine Aged Out No sharon sonal eligible based on patient's age to complete this topic RSV Immunizations Under 20 Months Aged Out No longer eligible based on patient's age to complete this topic Procedures Procedure Name Priority Date/Time Associated Diagnosis Comments CT HEART SCREEN CALCIUM SCORE PROMO Routine 01/25/2025 10:42 AM CDT Abnormal finding of blood chemistry, unspecified Essential (primary) hypertension Hyperlipidemia, unspecified from Last 3 Months Results * CT HEART SCREEN CALCIUM SCORE PROMO (01/25/2025 10:42 AM CDT) Anatomical Region Laterality Modality Chest Computed Tomogra phy 01/25/2025 10:5 4 AM CDT Impressions 01/25/2025 10:55 AM CDT =====IMPRESSION:===== Total Score: 198 Moderate plaque, moderately high risk, moderate likelihood of significant stenosis (>50%). Ordered By: DAVE SERNA Interpreted By: Bobby Andino MD, 01/25/2025 10:54 AM Narrative 01/25/2025 10:55 AM CDT [address] [address] EXAMINATION: Multislice Helical CT Coronary Calcium Scoring REASON FOR EXAM: Screening for heart disease COMPARISON: None TECHNIQUE: Multislice helical CT images of the proximal coronary arteries with a computer generated calcification score. A dose lowering technique was used for this procedure, which may include, but is not limited to, dose reduction technique, automated exposure control, iterative reconstruction, ALARA (As Low As Reasonably Achievable), or Image Gently techniques. Results: Left main: 0 LAD: 104 Circumflex: 14 Right coronary: 80 Total Score: 198 Comments: There is no mediastinal adenopathy, and there are no pulmonary nodules in the visualized portions of the chest. Calcium score guidelines: Total Score* Calcium Plaque Decker *Risk *Probability of significant CAD 0 No Plaque Very Low Very unlikely 1-10 Minimal Plaque Low Unlikely 11-100 Mild Plaque Moderate Low likelihood of significant stenosis <50% 101-400 Moderate Plaque Moderately High Moderate likelihood of significant stenosis (>50%) Over 400 Extensive Plaque High High likelihood of significant stenosis (>50%) The amount of coronary artery calcification correlates with the severity of coronary atherosclerosis and the probability of future significant event. Calcification is not site specific for stenosis and does not identify non-calcified atherosclerotic plaque, but rather indicates the extent of atherosclerosis in the coronary arteries overall. The score may be used as an indicator for risk factor modification or additional cardiac testing. Significant change in calcium score over time may be indicative of subsequent disease development or useful as a benchmark to assess preventative programs. Procedure Note Bobby Andino MD - 01/25/2025 [place] [id number] EXAMINATION: Multislice Helical CT Coronary Calcium Scoring REASON FOR EXAM: Screening for heart disease COMPARISON: None TECHNIQUE: Multislice helical CT images of the proximal coronary arterieswith a computer generated calcification score. A dose lowering techniquewas used for this procedure, which may include, but is not limited to,dose reduction technique, automated exposure control, iterativereconstruction, ALARA (As Low As Reasonably Achievable), or Image Gentlytechniques. Results: Left main: 0 LAD: 104 Circumflex: 14 Right coronary: 80 Total Score: 198 Comments: There is no mediastinal adenopathy, and there are no pulmonarynodules in the visualized portions of the chest. Calcium score guidelines: Total Score* Calcium Plaque Decker *Risk *Probability ofsignificant CAD 0 No Plaque Very LowVery unlikely 1-10 Minimal Plaque LowUnlikely 11-100 Mild Plaque ModerateLow likelihood of significant stenosis <50% 101-400 Moderate Plaque Moderately HighModerate likelihood of significant stenosis (>50%) Over 400 Extensive Plaque HighHigh likelihood of significant stenosis (>50%) The amount of coronary artery calcification correlates with the severityof coronary atherosclerosis and the probability of future significantevent. Calcification is not site specific for stenosis and does notidentify non-calcified atherosclerotic plaque, but rather indicates theextent of atherosclerosis in the coronary arteries overall. The score may be used as an indicator for risk factor modification oradditional cardiac testing. Significant change in calcium score over timemay be indicative of subsequent disease development or useful as abenchmark to assess preventative programs. =====IMPRESSION:===== Total Score: 198 Moderate plaque, moderately high risk, moderatelikelihood of significant stenosis (>50%). Ordered By: DAVE SERNA Interpreted By: Bobby Andino MD, 01/25/2025 10:54 AM Dave Serna MD CT Final Result from Last 3 Months Insurance MEDICARE [facility] Care Teams Recyclable Materials Sorter Relationship Specialty Start Date End Date Dave Serna MD [address] [place] [id number] PCP - General INTERNAL MEDICINE 01/21/25
== END 2025-02-01 13:12 | disposition home or self-care (01) ==
PROVIDERS: PCP Internal Medicine; Visit Provider Internal Medicine
DX: R94.6 Abnormal results of thyroid function studies (principal); E04.2 Nontoxic multinodular goiter
CPT/HCPCS: 76536